=== PATIENT | female | born 1985 | race Caucasian/White ===

== ENCOUNTER 2024-01-30 20:34 | Emergency (ER) | payer OTHER, SELFPAY ==
[2024-01-30 20:52] VITALS: BP 125/95
[2024-01-30] MEDS: ADACEL 0.5 ML IM (22:41)
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
[2024-01-31 00:26] VITALS: BP 119/78
== END 2024-01-31 00:27 | disposition home or self-care (01) ==
LOC: EMR 20:34
PROVIDERS: EMERGENCY PHYSICIAN Emergency Medicine; FAMILY PHYSICIAN Family Medicine
DX: S81.812A Laceration without foreign body, left lower leg, initial encounter (principal); W01.198A Fall on same level from slipping, tripping and stumbling with subsequent striking against other object, initial encounter; Y93.89 Activity, other specified; Y92.008 Other place in unspecified non-institutional (private) residence as the place of occurrence of the external cause; R03.0 Elevated blood-pressure reading, without diagnosis of hypertension; Z23 Encounter for immunization
CPT/HCPCS: 99282; 12002; 90471; 90715